=== PATIENT | female | born 1945 | race Hispanic/Latino ===

== ENCOUNTER 2025-01-09 17:22 | Emergency (ER) | payer MEDICARE ==
[~2025-01-09] VITALS: Ht 157.5 cm; Wt 70.5 kg
[2025-01-09] MEDS ORDERED: LISINOPRIL2.5 MG PO (17:45)
[2025-01-09] MEDS ORDERED: SKYRIZI150 MG/1 M (17:45)
[2025-01-09] MEDS ORDERED: ALENDRONATE SOD70 MG (17:45)
[2025-01-09] MEDS ORDERED: IBUPROFEN 200 MG TAB ONE (18:03)
[2025-01-09] MEDS: ACETAMINOPHEN 325 MG TAB PO ONE (18:17)
[2025-01-09] MEDS: IBUPROFEN 200 MG TAB PO ONE (18:17)
[2025-01-09] MEDS ORDERED: TYLENOL325 MG PO (19:24)
[2025-01-09] MEDS ORDERED: IBUPROFEN600 MG PO (19:24)
[2025-01-09 19:30] VITALS: PULSE 59; RESP 18; TEMP 98
[2025-01-09 19:38] VITALS: BP 183/78; PULSE 59; RESP 18; TEMP 98; O2SAT 98
== END 2025-01-09 19:41 | disposition home or self-care (01) ==
LOC: FSED 17:39
DX: M25.511 Pain in right shoulder (principal); S46.811A Strain of other muscles, fascia and tendons at shoulder and upper arm level, right arm, initial encounter; X50.1XXA Overexertion from prolonged static or awkward postures, initial encounter; Y92.89 Other specified places as the place of occurrence of the external cause; I10 Essential (primary) hypertension; M81.0 Age-related osteoporosis without current pathological fracture; L40.9 Psoriasis, unspecified
CPT/HCPCS: 99284